=== PATIENT | male | born 1970 | race Caucasian/White ===

== ENCOUNTER 2021-11-20 04:29 | Emergency (ER) | payer MEDICAID ==
[~2021-11-20] VITALS: Ht 175.3 cm; Wt 160.1 kg
[2021-11-20] MEDS ORDERED: ELIQ5TAB (04:46)
[2021-11-20] MEDS ORDERED: FURO40TA2 (04:46)
[2021-11-20] MEDS ORDERED: FENO145T7 (04:46)
[2021-11-20] MEDS ORDERED: METO1TAB7 (04:46)
[2021-11-20] MEDS ORDERED: OMEP40CA5 (04:46)
[2021-11-20] MEDS ORDERED: PREG100C (04:46)
[2021-11-20] MEDS ORDERED: VENL75CA47 (04:46)
[2021-11-20] MEDS ORDERED: CLON1TAB8 (04:46)
[2021-11-20] MEDS ORDERED: ALBU8.5H (04:46)
[2021-11-20] MEDS ORDERED: TIZA10TA (04:46)
[2021-11-20 05:19] LABS: HEMATOCRIT 36.2 % (42.0-52.0); HEMOGLOBIN 12.5 g/dl (13.5-17.5); MEAN CORPUSCULAR HEMOGLOBIN 32.1 pg (27.0-33.0); MEAN CORPUSCULAR HGB CONC 34.5 g/dl (32.0-36.5); MEAN CORPUSCULAR VOLUME 92.8 fl (80.0-96.0); WHITE BLOOD COUNT 6.6 10^3/uL (4.0-10.0)
[2021-11-20 05:20] LABS: BASO % 0.6 % (0.0-1.0); EOS # 0.3 10^3/uL (0.0-0.5); EOS % 4.4 % (0.0-3.0); LYMPH # 2.2 10^3/uL (1.5-5.0); LYMPH % 33.4 % (24.0-44.0); MONO # 0.6 10^3/uL (0.0-0.8); MONO % 9.6 % (2.0-8.0); NEUTROPHILS # 3.4 10^3/uL (1.5-8.5); NEUTROPHILS % 51.2 % (36.0-66.0); PLATELET COUNT, AUTOMATED 272 10^3/uL (150-450)
[2021-11-20 05:38] LABS: INR 1.06; PARTIAL THROMBOPLASTIN TIME 27.6 SECONDS (25.9-37.0); PROTHROMBIN TIME 14.2 SECONDS (12.7-14.5)
[2021-11-20 05:50] LABS: CK-MB VALUE MASS 1.6 NG/ML (<3.6); MB/CK RELATIVE INDEX 0.72 (< OR =4)
[2021-11-20 05:52] LABS: BLOOD UREA NITROGEN 11 MG/DL (7-18); CALCIUM LEVEL 8.4 MG/DL (8.5-10.1); CARBON DIOXIDE LEVEL 26 MEQ/L (21-32); CHLORIDE LEVEL 111 MEQ/L (98-107); CREATININE FOR GFR 0.97 MG/DL (0.70-1.30); GLOMERULAR FILTRATION RATE > 60.0 (>60); GLUCOSE, FASTING 213 MG/DL (70-100); NT-PRO BNP 27 PG/ML (<125); POTASSIUM SERUM 3.5 MEQ/L (3.5-5.1); SODIUM LEVEL 143 MEQ/L (136-145)
[2021-11-20 06:09] LABS: VENOUS HCO3 24.1 MEQ/L (23.0-27.0); VENOUS O2 SATURATION 84.2 % (60.0-80.0); VENOUS PARTIAL PRESSURE CO2 46.4 mmHg (38.0-50.0); VENOUS PARTIAL PRESSURE O2 50.9 mmHg (30.0-50.0); VENOUS PH 7.334 UNITS (7.330-7.430); VENOUS STANDARD HCO3 22.5 MEQ/L; VENOUS TOTAL CO2 25.6 MEQ/L (24.0-28.0)
[2021-11-20] MEDS ORDERED: MORPHINE 4 MG/ML 1ML VIAL/SYRINGE IV ONE ×2 (06:25→07:55)
[2021-11-20] MEDS ORDERED: ONDANSETRON 4MG/2ML VIAL IV ONE (06:25)
[2021-11-20] MEDS ORDERED: methylPREDNISolone 125MG 2ML VIAL IV ONE (06:30)
[2021-11-20] MEDS ORDERED: diphenhydrAMINE 50MG/ML VIAL (J1200) IV STA (06:30)
[2021-11-20] MEDS ORDERED: ISOVUE-370 76% 100ML VIAL As Ordered ONE (06:35)
[2021-11-20 06:41] LABS: CK-MB VALUE MASS 1.5 NG/ML (<3.6); MB/CK RELATIVE INDEX 0.68 (< OR =4)
[2021-11-20 09:01] VITALS: BP 148/81
[2021-11-20] MEDS ORDERED: GI COCKTAIL 50ML BTL(HYOSCYAMINE/MAALOX/LIDOCAINE VISCOUS)(1:3:1) PO ONE (09:15)
== END 2021-11-20 09:52 | disposition home or self-care (01) ==
LOC: M ED 04:29
DX: R07.9 Chest pain, unspecified (principal); K76.0 Fatty (change of) liver, not elsewhere classified; M51.35 Other intervertebral disc degeneration, thoracolumbar region; I25.2 Old myocardial infarction; I25.10 Atherosclerotic heart disease of native coronary artery without angina pectoris; E78.5 Hyperlipidemia, unspecified; I10 Essential (primary) hypertension; Z86.711 Personal history of pulmonary embolism; G89.29 Other chronic pain; M54.9 Dorsalgia, unspecified; J45.909 Unspecified asthma, uncomplicated; Z87.442 Personal history of urinary calculi; F17.220 Nicotine dependence, chewing tobacco, uncomplicated; Z79.01 Long term (current) use of anticoagulants; Z79.899 Other long term (current) drug therapy; Z88.6 Allergy status to analgesic agent; Z88.8 Allergy status to other drugs, medicaments and biological substances; Z91.030 Bee allergy status; Z91.013 Allergy to seafood
CPT/HCPCS: 71045; 71275; 74175; 80048; 82550; 82553; 82803; 83880; 85025; 85610; 85730; 87486; 87581; 87633; 87798; 93005; 96374; 96375; 96376; 99285; J1200; J2270; J2405; J2930; Q9967

== ENCOUNTER 2022-10-16 01:44 | Emergency (ER) | payer MEDICARE, OTHER, SELFPAY ==
[~2022-10-16] VITALS: Ht 175.3 cm; Wt 185.0 kg
[~2022-10-16 01:44] MED LIST: ALBU8.5H; CLON1TAB8; ELIQ5TAB; FENO145T7; FURO40TA2; METO1TAB7; OMEP40CA5; PREG100C; TIZA10TA; VENL75CA47
[2022-10-16 02:06] LABS: BASO # 0.1 10^3/uL (0.0-0.2); BASO % 0.4 % (0.0-1.0); EOS # 0.1 10^3/uL (0.0-0.5); EOS % 0.6 % (0.0-3.0); HEMATOCRIT 36.8 % (42.0-52.0); HEMOGLOBIN 12.9 g/dl (13.5-17.5); LYMPH # 2.2 10^3/uL (1.5-5.0); LYMPH % 17.6 % (24.0-44.0); MEAN CORPUSCULAR HEMOGLOBIN 32.2 pg (27.0-33.0); MEAN CORPUSCULAR HGB CONC 35.1 g/dl (32.0-36.5); MEAN CORPUSCULAR VOLUME 91.8 fl (80.0-96.0); MONO # 0.6 10^3/uL (0.0-0.8); MONO % 4.7 % (2.0-8.0); NEUTROPHILS # 9.6 10^3/uL (1.5-8.5); NEUTROPHILS % 76.1 % (36.0-66.0); PLATELET COUNT, AUTOMATED 404 10^3/uL (150-450); RED BLOOD COUNT 4.01 10^6/uL (4.30-6.10); WHITE BLOOD COUNT 12.6 10^3/uL (4.0-10.0)
[2022-10-16 02:30] LABS: PARTIAL THROMBOPLASTIN TIME 45.6 SECONDS (24.8-34.2)
[2022-10-16] MEDS ORDERED: diphenhydrAMINE 50MG/ML VIAL IV ONE (02:35)
[2022-10-16] MEDS ORDERED: methylPREDNISolone 125MG 2ML VIAL IV ONE (02:35)
[2022-10-16 02:40] LABS: LIPASE 50 U/L (12-53)
[2022-10-16 02:41] LABS: CPK CREATINE PHOSPHOKINASE 172 U/L (46-171)
[2022-10-16] MEDS ORDERED: ISOVUE-370 76% 100ML VIAL As Ordered ONE (02:41)
[2022-10-16 02:42] LABS: ALBUMIN 3.5 G/DL (3.2-5.2); ALKALINE PHOSPHATASE 87 U/L (46-116); ALT/SGPT 17 U/L (7.0-40); AST/SGOT 16 U/L (<34); BILIRUBIN,DIRECT 0.1 MG/DL (<0.4); BILIRUBIN,TOTAL 0.3 MG/DL (0.3-1.2); BLOOD UREA NITROGEN 12 MG/DL (9-23); CALCIUM LEVEL 9.4 MG/DL (8.5-10.1); CARBON DIOXIDE LEVEL 24 MMOL/L (20-31); CHLORIDE LEVEL 103 MMOL/L (98-107); CK-MB VALUE MASS < 1.0 NG/ML (<3.6); CREATININE FOR GFR 0.74 MG/DL (0.70-1.30); GLOMERULAR FILTRATION RATE > 60.0 (>56); GLUCOSE, FASTING 220 MG/DL (60-100); MB/CK RELATIVE INDEX 0.58 (< OR =4); POTASSIUM SERUM 3.9 MMOL/L (3.5-5.1); SODIUM LEVEL 135 MMOL/L (136-145); TOTAL PROTEIN 7.3 G/DL (5.7-8.2)
[2022-10-16 02:55] LABS: INR 1.72; PROTHROMBIN TIME 20.5 SECONDS (12.5-14.5)
[2022-10-16] MEDS: NITROGLYCERIN 0.4MG SUBL TABLET SL PRN ×3 (03:18→03:30)
[2022-10-16 03:27] LABS: CK-MB VALUE MASS < 1.0 NG/ML (<3.6)
[2022-10-16 03:29] LABS: CPK CREATINE PHOSPHOKINASE 169 U/L (46-171); MB/CK RELATIVE INDEX 0.59 (< OR =4)
[2022-10-16] MEDS ORDERED: GI COCKTAIL 50ML BTL(HYOSCYAMINE/MAALOX/LIDOCAINE VISCOUS)(1:3:1) PO ONE (04:00)
[2022-10-16] MEDS: HYDROMORPHONE HCL 0.5 MG/ 0.5 ML SYRINGE IV PRN ×2 (04:04→04:29)
[2022-10-16] MEDS ORDERED: oxyCODONE 5MG TAB PO ONE (05:30)
[2022-10-16] MEDS ORDERED: LABETALOL 100MG/20ML VIAL IV STA (05:58)
[2022-10-16 06:12] LABS: CK-MB VALUE MASS < 1.0 NG/ML (<3.6)
[2022-10-16 06:13] LABS: CPK CREATINE PHOSPHOKINASE 155 U/L (46-171); MB/CK RELATIVE INDEX 0.64 (< OR =4)
[2022-10-16 06:15] VITALS: BP 220/104
[2022-10-16] MEDS ORDERED: LORazepam 2 MG/ML 1ML VIAL IV STA (06:56)
[2022-10-16 07:46] VITALS: BP 141/82
== END 2022-10-16 08:05 | disposition home or self-care (01) ==
LOC: M ED 01:44 → EDBD 01:44 → M ED 08:05
DX: R07.89 Other chest pain (principal); I25.10 Atherosclerotic heart disease of native coronary artery without angina pectoris; I25.2 Old myocardial infarction; I10 Essential (primary) hypertension; E78.5 Hyperlipidemia, unspecified; Z79.899 Other long term (current) drug therapy; Z91.013 Allergy to seafood; Z79.01 Long term (current) use of anticoagulants
CPT/HCPCS: 71045; 71275; 80048; 80076; 82550; 82553; 83690; 84484; 85025; 85610; 85730; 93005; 93041; 94760; 96374; 96375; 99285; J1170; J1200; J2060; J2930; Q9967